=== PATIENT | female | born 1990 | race Caucasian/White ===

== ENCOUNTER → 2017-05-18 | Outpatient (CLI) | payer BC, OTHER | LOC: FIMAGING 09:12 | PROVIDERS: ATTEND Advanced Practice Midwife | DX: O24.419 Gestational diabetes mellitus in pregnancy, unspecified control (principal); Z3A.12 12 weeks gestation of pregnancy ==

== ENCOUNTER → 2017-07-15 | Outpatient (CLI) | payer BC, OTHER | LOC: FIMAGING 11:38 | PROVIDERS: ATTEND Advanced Practice Midwife | DX: O24.410 Gestational diabetes mellitus in pregnancy, diet controlled (principal); Z3A.20 20 weeks gestation of pregnancy ==

== ENCOUNTER → 2017-10-11 | Outpatient (CLI) | payer BC | LOC: FIMAGING 13:49 | PROVIDERS: ATTEND Advanced Practice Midwife | DX: O24.419 Gestational diabetes mellitus in pregnancy, unspecified control (principal); Z3A.32 32 weeks gestation of pregnancy ==